=== PATIENT | male | born 1990 | race Caucasian/White ===

== ENCOUNTER → 2019-01-01 10:25 | Outpatient (CLI) | payer OTHER, SELFPAY ==
--- NOTE | 2019-01-01 10:33 | XR_ITS ---
XR shoulder LT min 2V HISTORY: ITS.REASON: LT SHOULDER PAIN ORDERING PHYSICIAN: Elizabeth Pina APRN PATIENT AGE: 28 years Comparison: None FINDINGS: No fracture or dislocation. No lytic or blastic change. There is normal mineralization. The joint spaces are well-preserved. No significant degenerative/arthritic changes. No erosive changes evident. IMPRESSION: Negative, no acute finding
== END ==
PROVIDERS: PCP Nurse Practitioner Family; Visit Provider Nurse Practitioner Family
DX: M25.512 Pain in left shoulder (principal)
CPT/HCPCS: 73030

== ENCOUNTER 2019-03-13 10:30 | Outpatient (RCR) | payer OTHER, SELFPAY ==
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
--- NOTE | 2019-02-16 14:38 | HMH.RHREAS ---
Rehab Reassessment Rehab OP Re-assessment Start: 02/16/19 14:23 Freq: Status: Active Protocol: Document 02/16/19 14:25 SONIDODHARALION (Rec: 02/16/19 14:29 SONIDODHARALION [id number]) Electronically Signed By Gulshan Whitt, PT 02/16/19 14:25 Rehab Re-assessment Subjective Subjective PT REPORTS 0/10 L SH PAIN @ REST AND 3/10 POSTERIOR L SH PAIN WITH ER @90 ABD ON VAS. Objective Objective Notes AROM : L SH WFL MMT: L SH FLX 4+/5, ABD 4-4+/5 , ER 4-4+/5, IR 4+-5/5, BICEP 5/5, TRICEP 5/5 TTP: L SH POSTERIOR RTC/JT LINE 1/ Assessment Progress Assessment Progressing as Expected Assessment Notes PT W/IMPROVED STRENGTH, ROM, AND TTP Patient goals met STG'S 11/13 LTG'S 09/16 Goals Not Met STG'S 07/16, LTG'S 12/17 Plan Plan PT TO CONT. W/SKILLED P.T. TO MAKE FURTHER IMPROVEMENTS W/ STRENGTH, AND TTP TO ALLOW FOR OPTIMAL FUNCTION Frequency of Therapy 1-2X/WK Duration of therapy 3-4 WKS Time and Billing Re-Eval Time 15 Re-Eval Billing Units 1 PHYSICIAN CERTIFICATION: I certify the specified therapy services for Un[facility] are required, authorized, and reviewed every 30 days.
== END 2019-03-13 10:35 | disposition home or self-care (01) ==
LOC: PT 10:30
PROVIDERS: Visit Provider Nurse Practitioner Family
DX: M25.512 Pain in left shoulder (principal); S13.4XXA Sprain of ligaments of cervical spine, initial encounter
CPT/HCPCS: 97010; 97014; 97033; 97035; 97110; 97163; 97164; G0283